=== PATIENT | female | born 1995 | race Two or more races ===

== ENCOUNTER 2021-08-05 00:31 | Emergency (ER) | payer MEDICAID ==
[~2021-08-05] VITALS: Ht 157.5 cm; Wt 75.1 kg
[2021-08-05 00:34] VITALS: BP 129/74
[2021-08-05 02:00] LABS: COVID AG,FIA SOURCE NASAL SWAB
[2021-08-05 02:18] LABS: INFLUENZA TYPE A NEGATIVE FOR TYPE A (NEGATIVE); INFLUENZA TYPE B NEGATIVE FOR TYPE B (NEGATIVE)
== END 2021-08-05 05:56 | disposition home or self-care (01) ==
LOC: EMS 00:37
DX: R06.02 Shortness of breath (principal); Z20.822 Contact with and (suspected) exposure to COVID-19
CPT/HCPCS: 71045; 87804; 99284